=== PATIENT | male | born 1950 | race Caucasian/White ===

== ENCOUNTER → 2019-03-09 | Day surgery (SDC) | payer MEDICARE, OTHER ==
[~2019-03-09] MED LIST: AMLO10TA8 PO; AMLO5TAB10 PO; ASPI325T8 PO; CYAN25008 PO; FAMO20VI3 IV; FLEC100T PO; HYDR-2765 PO; HYDROmorphone 2 MG/ML VIAL IV PRN; IV RINGERS,LACTATED 1000ML 1,000 ML IV SCH; LIDOCAINE 1% PF 2 ML VIAL. ID PRN; LIDOCAINE 2% PF 5 ML VIAL. ONE; LOSA-73 PO; MELO15TA23 PO; METO-239 PO; MORPHINE SULFATE 2 MG/ML VIAL. IV PRN; NAPR-634 PO; NAPR220C4 PO; OLME20TA17 PO; ONDA4TAB10 SL; OXYC1TAB19 PO; PANT40TA77 PO; PROCHLORPERAZINE 10 MG/2 ML VIAL. IV PRN; PROPOFOL 60 ML IV ONE; SIMV40TA3 PO; SUCR1ORA11 PEG; TAMS0.4C2 PO; fentaNYL PF VIAL 100 MCG/2 ML VIAL IV PRN
--- NOTE | 2019-03-09 15:49 | PDOC4 ---
PROCEDURE Procedure EGD with biopsies/Colonoscopy with polypectomy. Indication; HARIKA Meds: per anesthesia Findings: LUCIA: Enlarged smooth prostate --"Scope advanced to TI. Mucosa normal. Prep good. Scattered diverticula, sigmoid. TI normal. --8-10mm semipedunculated polyp in rectum, removed with cold snare. No other lesions noted. --internal hemorrhoids on retroflex. E--Normal G--Prepyloric scar/pylorus deformed. D--normal to third portion. Biopsies of second portion of duodenum and antrum Martha. well. IMP: diverticulosis One polyps Internal hemorrhoids Prepyloric scar/deformed pylorus (history of ulcers in this area). REC: Resume home meds and diet. Await histology. F/u in 2 weeks. Consider SBCE if no answer from path. SHUBHAM MCKEON MD Mar 09, 2019 15:49
[2019-03-09 16:12] VITALS: BP 154/78
--- NOTE | 2019-03-11 13:08 | PATHOLOGY ---
[facility] Accession Number: [id number] . 01 Material submitted: . PART A: duodenum - DUODENAL BIOPSY PART B: stomach - DISTAL STOMACH BIOPSY. Modifiers: distal PART C: rectum - RECTAL POLYP . 01 Clinical history: . Anemia . 02 Diagnosis: A. Small bowel, duodenum, biopsy: - Mild chronic inflammation. - Normal villous architecture. . B. Stomach, distal, biopsy: - Chronic superficial gastritis, mild. - No evidence of Helicobacter pylori on immunoperoxidase stain. . C. Colon, rectum, biopsy: - Adenomatous polyp. . (SKM:joselin; 03/10/2019) MBR 03/11/2019 1012 Local . 02 Electronically signed: . Harvey Harry MD, Pathologist NPI- [id number] . 01 Gross description: . A. Received in formalin labeled "Sylvester, Bill, duodenal BX," are 2 segments of valles soft tissue measuring 0.9 x 0.3 x 0.2 cm in aggregate dimensions and ranging from 0.4 to 0.5 cm in maximum dimension. The specimen is submitted entirely in cassette A1. . B. Received in formalin labeled "Sylvester, Bill, distal stomach BX," are 3 segments of valles soft tissue measuring 1.1 x 0.6 x 0.2 cm in aggregate dimensions and ranging from 0.4 to 0.5 cm in maximum dimension. The specimen is submitted entirely in cassette B1. . C. Received in formalin labeled "Sylvestre, Bill, rectal polyp," is a 0.7 x 0.5 x 0.5 cm polypoid piece of valles soft tissue. The margin is inked and the tissue is sectioned perpendicular to the margin and submitted entirely in cassette C1. (TSD; 03/10/2019) TOB/TOB 03/10/2019 1748 Local . 02 Pathologist provided ICD-10: K29.80, K29.50, D12.8 . 02 CPT . 986847, 873659, 206023, [id number] Specimen Comment: A courtesy copy of this report has been sent to Specimen Comment: [phone]. Specimen Comment: Report sent to Performed at: [address] [facility], [place] [id number] MD Hermes Betts MD Phone: [phone] [facility]formed [facility]: [facility] [address] [place], [place] [id number] MD Cali Kirkpatrick MD Phone: [phone]
== END ==
LOC: ENDOS 12:37
PROVIDERS: ATTEND Internal Medicine Gastroenterology
DX: D50.9 Iron deficiency anemia, unspecified (principal); D12.8 Benign neoplasm of rectum; K29.50 Unspecified chronic gastritis without bleeding; K57.30 Diverticulosis of large intestine without perforation or abscess without bleeding; K64.0 First degree hemorrhoids; K31.89 Other diseases of stomach and duodenum; J44.9 Chronic obstructive pulmonary disease, unspecified; K21.9 Gastro-esophageal reflux disease without esophagitis; K44.9 Diaphragmatic hernia without obstruction or gangrene; N40.0 Benign prostatic hyperplasia without lower urinary tract symptoms; I10 Essential (primary) hypertension; E78.00 Pure hypercholesterolemia, unspecified; I48.91 Unspecified atrial fibrillation; F17.210 Nicotine dependence, cigarettes, uncomplicated; Z98.890 Other specified postprocedural states; Z87.39 Personal history of other diseases of the musculoskeletal system and connective tissue
CPT/HCPCS: 43239; 45385; 88305; 88342; J2001; J2704; 45380